=== PATIENT | male | born 1980 | race Caucasian/White ===

== ENCOUNTER 2019-11-25 23:42 | Emergency (ER) | payer MEDICAID, SELFPAY ==
[2019-11-25 23:43] VITALS: BP 127/66; PULSE 88; RESP 18; TEMP 36.6; O2SAT 99; BMI 21.9
--- NOTE | 2019-11-26 | RAD_ITS ---
STUDY: X-RAY - RIGHT FOOT CLINICAL: Male, 39 years old pain, swelling and redness to right foot for one week. TECHNIQUE: 3 view(s) of the foot. COMPARISON: None. FINDINGS: Normal talus, calcaneus, and tarsal bones. Intertarsal articulations and tarsometatarsal articulations are within normal limits. Normal metatarsi. There is degenerative arthrosis of the metatarsophalangeal joint of the hallux . Normal tibial and fibular sesamoid bones. Normal interphalangeal joint of the great toe. Normal phalanges of the great toe. Normal second through fifth metatarsophalangeal joints. Normal interphalangeal joints and phalanges of the lesser toes. There is soft tissue swelling. There is no demonstrated fracture. RAD/Foot min 3 Views IMPRESSION: Moderately severe soft tissue swelling. Electronically Signed: Annalise Aceves MD at 0:43 EDT , Service support ,
--- NOTE | 2019-11-26 | RAD_ITS ---
STUDY: X-RAY - RIGHT ANKLE REASON FOR EXAM: Male, 39 years old patient with pain, swelling and redness to right foot and ankle for one week. TECHNIQUE: 3 view(s) of the ankle. COMPARISON: None. FINDINGS: Normal visualized distal tibia and fibula. Normal medial and lateral malleoli. Normal tibiotalar articulation and ankle mortise. Normal visualized talus and calcaneus. Intertarsal articulations are within normal limits. There is no demonstrated fracture. There is moderately severe soft tissue swelling. There may be a small ankle effusion. There is increased attenuation within K[place]''s fat pad. RAD/Ankle min 3 Views IMPRESSION: Diffuse soft tissue swelling and suggestion for joint effusion. Electronically Signed: Annalise Aceves MD at 0:36 EDT , Service support ,
[2019-11-26] MEDS: morphine 8 MG/ML Syringe IM (00:10)
--- NOTE | 2019-11-26 00:34 | ED.DCSUM_ITS ---
- ER Visit Summary Date of Service: 11/26/19 Chief Complaint: Right foot swelling History of Present Illness: The patient is a [address] Rubi. Ports approximately a week ago he was working on his hands and knees mopping floors. States that when he got up his ankle seem to give out. His left ankle has now resolved. However, he reports that he has had continued pain in his right ankle and foot since that time. Reports he has a blister that began on his foot approximately 5 days ago. Patient reports that he has a sharp, throbbing pain that is diffuse over his foot and his ankle. Is 9 at 10 at worst 9-10 currently. Is worsened by walking and relieved by elevating. He denies any other trauma. He denies constitutional symptoms. No fever, chills, nausea, or vomiting. Physical Examination: Vitals: Stable. Afebrile. General: Well-nourished and well-developed. Head: Normocephalic atraumatic. Neck: Supple, no lymphadenopathy. No JVD. Nontender. Cardiovascular: Regular rate and rhythm. No murmurs. Respiratory: No respiratory distress. Clear to auscultation bilaterally. Abdominal: Soft, nontender, nondistended, normal bowel sounds. No guarding, rebound, or peritoneal signs. Back: Nontender. Extremities: 2+ dorsalis pedis pulse bilaterally. He has 3+ pitting edema of his right foot and 2+ pitting edema of his right calf. He has moderate tensional patient that is diffuse over his entire foot. This is also present over both the medial lateral malleoli. He has no pain over the proximal fibula. He does have a blister that is not hemorrhagic over the top of his foot that is at the base of the second through fourth toes. There is minimal erythema to the top of his foot. There is no warmth. There is no induration or fluctuance. Skin: Normal color, no rash. Neurologic: Alert and oriented ?3. Cranial nerves II through XII are intact. Normal strength and sensation. Psych: Normal affect. Test Results: Clinical Impression(s) from Imaging Studies Ankle X-Ray 11/26/19 00:00 IMPRESSION: Diffuse soft tissue swelling and suggestion for joint effusion. Electronically Signed: Annalise Aceves MD at 0:36 EDT , Service support , Foot X-Ray 11/26/19 00:00 IMPRESSION: Moderately severe soft tissue swelling. Electronically Signed: Annalise Aceves MD at 0:43 EDT , Service support , Emergency Department Course and Treatment: Patient was given a shot of morphine IM for pain. He had a dressing placed. He was treated with doxycycline and Eliquis. Treatment Plan: Patient be discharged with doxycycline and [place]. He is instructed that he needs to come back tomorrow to have a Doppler to rule out a DVT. He does understand that if this is positive he will be sent back to the emergency department. He is to follow-up with Dr. Bailey in 2 days for a wound check. Return to the emergency department for any worsening symptoms. Disposition: To home in improved and stable condition. Impression: 1. Right leg swelling, uncertain cause. 2. Blister right foot. This note was generated with [employer] dictation software. It may contain incorrect words, spelling, and punctuation that were not noted in review of the chart prior to signing ED Disposition - Plan for ED Patient: Disposition: Home or Assisted Living Instructions: ED Peripheral Edema, Unilateral Prescriptions: Doxycycline 100 mg PO BID #20 cap Prescription Printed Hydrocodone Bitart/Apap 5-325 [[place] 5MG-325MG] 1 tab PO Q6H PRN PRN 3 Days #10 tab PRN Reason: Pain Prescription Printed Referrals: Scott Bailey DPM [STAFF PHYSICIAN] - 2 Days for wound check
[2019-11-26] MEDS: Doxycycline 100 MG CAPSULE PO (00:42)
[2019-11-26] MEDS: APIXABAN 5 MG TABLET 10 MG PO (01:08)
== END 2019-11-26 01:14 | disposition home or self-care (01) ==
LOC: ED 11-26 00:20
PROVIDERS: Emergency Provider Emergency Medicine; PCP Internal Medicine
DX: M79.89 Other specified soft tissue disorders (principal); S90.821A Blister (nonthermal), right foot, initial encounter; X50.3XXA Overexertion from repetitive movements, initial encounter; Y93.E5 Activity, floor mopping and cleaning; Y92.9 Unspecified place or not applicable; Y99.9 Unspecified external cause status; F17.210 Nicotine dependence, cigarettes, uncomplicated
CPT/HCPCS: 73610; 73630; 96372; 99284